=== PATIENT | male | born 1935 | race Caucasian/White ===

== ENCOUNTER 2024-04-27 19:47 | Inpatient (IN) | payer MEDICARE, OTHER ==
[~2024-04-27] VITALS: Ht 177.8 cm; Wt 92.0 kg
[~2024-04-27 19:47] MED LIST: ASPI-1450 PO; ATOR40TA28 PO; GABA-1181 PO; METO25 PO; OXYC5CAP22 PO; TRAZ-257 PO
[2024-04-27] MEDS ORDERED: IPRATROPIUM BROMIDE 0.5 MG/2.5 ML NEB SOLUTION NEB ONE (19:56)
[2024-04-27] MEDS ORDERED: ALBUTEROL SULFATE 2.5 MG/0.5 ML NEB SOLUTION NEB ONE (19:56)
[2024-04-27] MEDS: DEXAMETHASONE SOD PHOS 4 MG/ML 5 ML VIAL IVP ONE (20:00)
[2024-04-27 20:02] VITALS: PULSE 109; RESP 24; O2SAT 100
[2024-04-27] MEDS: IPRATROPIUM BROMIDE 0.5 MG/2.5 ML NEB SOLUTION NEB ONE (20:02)
[2024-04-27] MEDS: ALBUTEROL SULFATE 2.5 MG/0.5 ML NEB SOLUTION NEB ONE (20:02)
[2024-04-27 20:17] VITALS: PULSE 105; RESP 22; O2SAT 99
[2024-04-27] MEDS: GLUCAGON,HUMAN RECOMBINANT 1 MG VIAL IVP ONE (20:21)
[2024-04-27 20:33] LABS: BASOPHILS % (AUTO) 0.8 % (0.0-2.0); EOSINOPHILS % (AUTO) 1.5 % (1.0-6.0); HEMATOCRIT 27.9 % (41-53); HEMOGLOBIN 8.9 g/dL (13.5-17.5); LYMPHOCYTES # (AUTO) 0.5 K/uL (1.0-4.8); LYMPHOCYTES % (AUTO) 4.9 % (22.0-44.0); MEAN CORPUSCULAR HGB CONC 31.7 G/dL (31.0-37.0); MEAN CORPUSCULAR VOLUME 101 fL (80-100); MONOCYTES # (AUTO) 0.6 K/uL (0.1-1.0); MONOCYTES % (AUTO) 6.3 % (2.0-9.0); NEUTROPHILS # (AUTO) 8.6 K/uL (1.8-7.7); PLATELET COUNT (AUTO) 297 K/uL (150-450); RED BLOOD CELL COUNT(AUTO) 2.77 MIL/uL (4.50-5.90); RED CELL DISTRIBUTION WIDTH 17.7 % (11.5-14.5); WHITE BLOOD COUNT (AUTO) 9.9 K/uL (4.5-11.0)
[2024-04-27 20:39] LABS: CALCIUM, TOTAL 7.6 mg/dL (8.8-10.5); CREATININE 1.92 mg/dL (0.60-1.30); NEUTROPHILS % (AUTO) 86.5 % (40.0-70.0); POTASSIUM 4.5 mmol/L (3.5-5.1)
[2024-04-27 20:50] LABS: TROPONIN I-HIGH SENSITIVITY 79 ng/L (<76)
[2024-04-27 20:55] LABS: LACTIC ACID 3.3 mmol/L (0.4-2.0)
[2024-04-27 21:18] LABS: RBC MORPHOLOGY COMMENT ABNORMAL RBC MORPH
[2024-04-27] MEDS: AMPICILLIN SODIUM/SULBACTAM NA 3 GM in SODIUM CHLORIDE 0.9% 100 ML IV ONE (21:23)
[2024-04-27] MEDS: SODIUM CHLORIDE 0.9% 4,200 ML IV ONE (21:23)
[2024-04-27 21:33] LABS: COVID AG,FIA SOURCE NASAL SWAB
[2024-04-27] MEDS: FUROSEMIDE 20 MG/2 ML VIAL IVP ONE (21:50)
[2024-04-27 21:58] LABS: INFLUENZA TYPE A NEGATIVE FOR TYPE A (NEGATIVE); INFLUENZA TYPE B NEGATIVE FOR TYPE B (NEGATIVE); SARS-COV2 (COVID) ANTIGEN,FIA Negative (Negative)
[2024-04-27] MEDS ORDERED: MORPHINE SULFATE 2 MG/ML SYRINGE IVP PRN (22:30)
[2024-04-27] MEDS ORDERED: ONDANSETRON HCL 4 MG/2 ML VIAL IVP PRN (22:30)
[2024-04-27] MEDS ORDERED: MAGNESIUM HYDROXIDE SUSPENSION 30 ML UDCUP PO PRN (22:30)
[2024-04-27] MEDS: HEPARIN SODIUM,PORCINE 5,000 UNITS/ML VIAL SQ SCH (23:55)
[2024-04-28] VITALS (9 sets, daily range): BP systolic 137–158; BP diastolic 60–104; PULSE 81–107; RESP 16–25; TEMP 97.5–99.8; O2SAT 96–100
[2024-04-28 00:09] LABS: APPEARANCE,URINE CLEAR (CLEAR); BILIRUBIN,URINE NEGATIVE (NEGATIVE); COLOR,URINE LIGHT YELLOW (YELLOW); GLUCOSE, URINE (UA) 150-200 mg/dL (NEGATIVE); KETONES,URINE NEGATIVE (NEGATIVE); LEUKOCYTE ESTERASE ,URINE NEGATIVE (NEGATIVE); NITRATE,URINE NEGATIVE (NEGATIVE); OCCULT BLOOD,URINE NEGATIVE (NEGATIVE); PROTEIN,URINE 30-70 mg/dL (NEGATIVE); SPECIFIC GRAVITIY, URINE 1.012 (1.003-1.030); UROBILINOGEN,URINE <=1.0 mg/dL (<=1.0)
[2024-04-28 00:20] LABS: BACTERIA,URINE Rare /HPF (None Seen); RBC,URINE 0-2 /HPF (0-2); WBC,URINE 0-2 /HPF (0-5)
[2024-04-28 00:33] LABS: ABG BASE EXCESS -8.5 mmol/L (-2.0-3.0); ABG CARBOXYHEMOGLOBIN 0.3 % (0.5-1.5); ABG HCO3 17.9 mmol/L (21.0-28.0); ABG METHEMOGLOBIN 0.9 % (0.0-1.5); ABG OXYGEN CONTENT 13.4 mL/dL (15.0-23.0); ABG OXYGEN SATURATION 98.3 % (94.0-98.0); ABG OXYHEMOGLOBIN 97.1 % (94.0-98.0); ABG PCO2 45 mmHg (35.0-48.0); ABG PH 7.241 (7.350-7.450); ABG TOTAL HEMOGLOBIN 9.7 G/dL (13.5-17.5); ALLEN TEST, BLOOD GAS Positive; PO2, ARTERIAL BG 112.4 mmHg (83.0-108.0); SITE, BLOOD GAS RT RADIAL; SOURCE, BLOOD GAS ARTERIAL; TEMPERATURE, FAHRENHEIT, BG 99.1 FAHREN (96.0-98.6)
[2024-04-28 00:34] LABS: ABG A-A DIFF O2 120.8 mmHg (10-20.0); O2 DEVICE,BLOOD GAS CANNULA (ROOM AIR)
[2024-04-28] MEDS ORDERED: APIX2.5T PO (02:12)
[2024-04-28] MEDS: PIPERACILLIN/TAZO 3.375 GM/D5W 50 ML IV SCH (03:22)
[2024-04-28] MEDS ORDERED: SODIUM CHLORIDE 0.9% 100 ML ONE (03:23)
[2024-04-28] MEDS: RACEPINEPHRINE HCL 2.25% 0.5 ML NEB SOLUTION NEB PRN (04:00)
[2024-04-28] MEDS ORDERED: 0.9% SODIUM CHLORIDE 5 ML NEB SOLUTION NEB ONE ×2 (04:02→21:23)
[2024-04-28 04:23] LABS: ABG BASE EXCESS -7.3 mmol/L (-2.0-3.0); ABG CARBOXYHEMOGLOBIN 0.3 % (0.5-1.5); ABG HCO3 18.7 mmol/L (21.0-28.0); ABG METHEMOGLOBIN 0.8 % (0.0-1.5); ABG OXYGEN SATURATION 98.3 % (94.0-98.0); ABG OXYHEMOGLOBIN 97.2 % (94.0-98.0); ABG PCO2 46 mmHg (35.0-48.0); ABG PH 7.254 (7.350-7.450); ABG TOTAL HEMOGLOBIN 10.1 G/dL (13.5-17.5); PO2, ARTERIAL BG 112.5 mmHg (83.0-108.0); SOURCE, BLOOD GAS ARTERIAL; TEMPERATURE, FAHRENHEIT, BG 99.3 FAHREN (96.0-98.6)
[2024-04-28 05:59] LABS: ABG A-A DIFF O2 61.8 mmHg (10-20.0); ALLEN TEST, BLOOD GAS Positive; O2 DEVICE,BLOOD GAS NASAL CANNULA (ROOM AIR); SITE, BLOOD GAS LFT RADIAL
[2024-04-28 06:21] LABS: CALCIUM, TOTAL 7.5 mg/dL (8.8-10.5); CREATININE 1.81 mg/dL (0.60-1.30); POTASSIUM 4.6 mmol/L (3.5-5.1)
[2024-04-28 06:27] LABS: BASOPHILS % (AUTO) 0.3 % (0.0-2.0); EOSINOPHILS % (AUTO) 0 % (1.0-6.0); HEMOGLOBIN 8.8 g/dL (13.5-17.5); LYMPHOCYTES # (AUTO) 0.3 K/uL (1.0-4.8); LYMPHOCYTES % (AUTO) 4.9 % (22.0-44.0); MEAN CORPUSCULAR HEMOGLOBIN 32.6 pg (26.0-34.0); MEAN CORPUSCULAR HGB CONC 32.6 G/dL (31.0-37.0); MEAN CORPUSCULAR VOLUME 100 fL (80-100); MONOCYTES # (AUTO) 0.1 K/uL (0.1-1.0); MONOCYTES % (AUTO) 0.9 % (2.0-9.0); NEUTROPHILS # (AUTO) 5.9 K/uL (1.8-7.7); PLATELET COUNT (AUTO) 295 K/uL (150-450); RED CELL DISTRIBUTION WIDTH 17.5 % (11.5-14.5); WHITE BLOOD COUNT (AUTO) 6.3 K/uL (4.5-11.0)
[2024-04-28 06:29] LABS: NEUTROPHILS % (AUTO) 93.9 % (40.0-70.0)
[2024-04-28 06:40] LABS: TROPONIN I-HIGH SENSITIVITY 86 ng/L (<76)
[2024-04-28] MEDS: PANTOPRAZOLE SODIUM 40 MG DR TABLET PO SCH (08:51)
[2024-04-28] MEDS: APIXABAN 2.5 MG TABLET PO SCH (08:51)
[2024-04-28] MEDS: DOCUSATE SODIUM 100 MG CAPSULE PO SCH (08:51)
[2024-04-28] MEDS: METOPROLOL TARTRATE 25 MG TABLET PO SCH (08:51)
[2024-04-28] MEDS: ASPIRIN 81 MG CHEWABLE TABLET PO SCH (08:51)
[2024-04-28] MEDS ORDERED: EPINEPHrine 1:10,000 [1 MG/10 ML] SYRINGE IVP ONE (12:00)
[2024-04-28] MEDS ORDERED: DEXTROSE 5%-WATER 250 ML BAG IV ONE (12:00)
[2024-04-28] MEDS ORDERED: HydrALAZINE HCL 20 MG/ML VIAL IVP PRN (17:00)
[2024-04-28] MEDS: ATORVASTATIN CALCIUM 40 MG TABLET PO SCH (20:42)
[2024-04-28] MEDS: ALBUTEROL SULFATE 2.5 MG/0.5 ML NEB SOLUTION NEB PRN (21:24)
[2024-04-29] VITALS (15 sets, daily range): BP systolic 101–166; BP diastolic 51–96; PULSE 52–109; RESP 13–24; TEMP 97.7–98.4; O2SAT 95–100
[2024-04-29] MEDS: ACETAMINOPHEN 325 MG TABLET PO PRN (02:19)
[2024-04-29] MEDS ORDERED: 0.9% SODIUM CHLORIDE 5 ML NEB SOLUTION NEB ONE ×2 (02:33→12:05)
[2024-04-29 06:10] LABS: CALCIUM, TOTAL 7.7 mg/dL (8.8-10.5); CREATININE 2.06 mg/dL (0.60-1.30)
[2024-04-29] MEDS: HYDROCODONE/ACETAMINOPHEN 5-325 MG TABLET PO PRN (06:17)
[2024-04-29 06:22] LABS: BASOPHILS % (AUTO) 0.2 % (0.0-2.0); EOSINOPHILS % (AUTO) 0 % (1.0-6.0); HEMATOCRIT 28.3 % (41-53); HEMOGLOBIN 8.9 g/dL (13.5-17.5); LYMPHOCYTES # (AUTO) 0.7 K/uL (1.0-4.8); LYMPHOCYTES % (AUTO) 4.3 % (22.0-44.0); MEAN CORPUSCULAR HEMOGLOBIN 31.5 pg (26.0-34.0); MEAN CORPUSCULAR HGB CONC 31.6 G/dL (31.0-37.0); MEAN CORPUSCULAR VOLUME 100 fL (80-100); MONOCYTES # (AUTO) 1.1 K/uL (0.1-1.0); MONOCYTES % (AUTO) 7.5 % (2.0-9.0); NEUTROPHILS # (AUTO) 13.5 K/uL (1.8-7.7); PLATELET COUNT (AUTO) 319 K/uL (150-450); RED BLOOD CELL COUNT(AUTO) 2.84 MIL/uL (4.50-5.90); RED CELL DISTRIBUTION WIDTH 17.7 % (11.5-14.5); WHITE BLOOD COUNT (AUTO) 15.3 K/uL (4.5-11.0)
[2024-04-29 06:37] LABS: TROPONIN I-HIGH SENSITIVITY 215 ng/L (<76)
[2024-04-29] MEDS: ZOLPIDEM TARTRATE 5 MG TABLET PO PRN (22:34)
[2024-04-30] VITALS (9 sets, daily range): BP systolic 104–158; BP diastolic 62–93; PULSE 56–105; RESP 18–20; TEMP 97.6–99; O2SAT 95–100
[2024-04-30 06:13] LABS: HEMATOCRIT 23.9 % (41-53); HEMOGLOBIN 7.6 g/dL (13.5-17.5); MEAN CORPUSCULAR HEMOGLOBIN 31.5 pg (26.0-34.0); MEAN CORPUSCULAR HGB CONC 31.7 G/dL (31.0-37.0); MEAN CORPUSCULAR VOLUME 99 fL (80-100); PLATELET COUNT (AUTO) 282 K/uL (150-450); RED BLOOD CELL COUNT(AUTO) 2.41 MIL/uL (4.50-5.90); RED CELL DISTRIBUTION WIDTH 17.8 % (11.5-14.5); WHITE BLOOD COUNT (AUTO) 11.5 K/uL (4.5-11.0)
[2024-04-30 06:18] LABS: CALCIUM, TOTAL 7.7 mg/dL (8.8-10.5); CREATININE 2.55 mg/dL (0.60-1.30); POTASSIUM 4.8 mmol/L (3.5-5.1)
[2024-04-30 07:53] LABS: BAND NEUTROPHILS % (MANUAL) 3 % (0-5); LYMPHOCYTES % (MANUAL) 16 % (22-44); MONOCYTES % (MANUAL) 6 % (2-9); SEGMENTED NEUTROPHILS % 75 % (40-70); TOTAL CELLS COUNTED 100
[2024-04-30 07:54] LABS: RBC MORPHOLOGY COMMENT NORMAL RBC MORPH
[2024-04-30] MEDS: SODIUM CHLORIDE 0.9% 1,000 ML IV ONE (12:01)
[2024-04-30] MEDS: PIPERACILLIN SODIUM/TAZOBACTAM 2.25 GM in DEXTROSE 5%-WATER 50 ML IV SCH (21:25)
[2024-05-01 05:51] VITALS: BP 117/52; PULSE 104; RESP 19; TEMP 97.6; O2SAT 100
[2024-05-01 06:32] LABS: HEMATOCRIT 41.2 % (41-53); HEMOGLOBIN 13.8 g/dL (13.5-17.5); MEAN CORPUSCULAR HEMOGLOBIN 30.9 pg (26.0-34.0); MEAN CORPUSCULAR HGB CONC 33.4 G/dL (31.0-37.0); MEAN CORPUSCULAR VOLUME 93 fL (80-100); PLATELET COUNT (AUTO) 136 K/uL (150-450); RED BLOOD CELL COUNT(AUTO) 4.45 MIL/uL (4.50-5.90); RED CELL DISTRIBUTION WIDTH 14.1 % (11.5-14.5); WHITE BLOOD COUNT (AUTO) 3.5 K/uL (4.5-11.0)
[2024-05-01 06:48] LABS: CALCIUM, TOTAL 8.3 mg/dL (8.8-10.5); CREATININE 1.17 mg/dL (0.60-1.30); POTASSIUM 4.1 mmol/L (3.5-5.1)
[2024-05-01 07:25] LABS: BAND NEUTROPHILS % (MANUAL) 1 % (0-5); EOSINOPHILS % (MANUAL) 1 % (1-6); LYMPHOCYTES % (MANUAL) 33 % (22-44); MONOCYTES % (MANUAL) 17 % (2-9); PLATELET MORPHOLOGY COMMENT LARGE PLTS PRESENT; SEGMENTED NEUTROPHILS % 48 % (40-70); TOTAL CELLS COUNTED 100
[2024-05-01 07:26] LABS: RBC MORPHOLOGY COMMENT NORMAL RBC MORPH
[2024-05-01 08:00] VITALS: PULSE 90
[2024-05-01 08:16] VITALS: BP 117/81; PULSE 104; RESP 22; TEMP 97.6; O2SAT 96
[2024-05-01 09:07] LABS: EOSINOPHILS % (AUTO) 1.5 % (1.0-6.0); HEMOGLOBIN 8.1 g/dL (13.5-17.5); LYMPHOCYTES # (AUTO) 0.8 K/uL (1.0-4.8); LYMPHOCYTES % (AUTO) 8.5 % (22.0-44.0); MEAN CORPUSCULAR HEMOGLOBIN 31.3 pg (26.0-34.0); MEAN CORPUSCULAR HGB CONC 31.2 G/dL (31.0-37.0); MEAN CORPUSCULAR VOLUME 100 fL (80-100); MONOCYTES # (AUTO) 1.1 K/uL (0.1-1.0); MONOCYTES % (AUTO) 11.4 % (2.0-9.0); NEUTROPHILS # (AUTO) 7.3 K/uL (1.8-7.7); NEUTROPHILS % (AUTO) 77.6 % (40.0-70.0); PLATELET COUNT (AUTO) 252 K/uL (150-450); RED CELL DISTRIBUTION WIDTH 18.1 % (11.5-14.5); WHITE BLOOD COUNT (AUTO) 9.4 K/uL (4.5-11.0)
[2024-05-01 09:12] LABS: CALCIUM, TOTAL 7.8 mg/dL (8.8-10.5); CREATININE 2.24 mg/dL (0.60-1.30); POTASSIUM 4.5 mmol/L (3.5-5.1)
[2024-05-01 09:29] LABS: RBC MORPHOLOGY COMMENT ABNORMAL RBC MORPH
[2024-05-01 12:00] VITALS: BP 130/85; PULSE 89; PULSE 90; RESP 18; TEMP 97.8; O2SAT 100
[2024-05-01 16:00] VITALS: BP 157/96; PULSE 104; PULSE 94; RESP 20; TEMP 98; O2SAT 100
[2024-05-01] MEDS: SODIUM CHLORIDE 0.9% 500 ML IV ONE (17:12)
[2024-05-01 20:30] VITALS: BP 167/76; PULSE 91; RESP 18; TEMP 98; O2SAT 100
[2024-05-02] VITALS (11 sets, daily range): BP systolic 101–177; BP diastolic 54–79; PULSE 59–107; RESP 18–25; TEMP 97.7–98.7; O2SAT 96–98
[2024-05-02 06:00] LABS: APPEARANCE,URINE TURBID (CLEAR); BILIRUBIN,URINE NEGATIVE (NEGATIVE); COLOR,URINE YELLOW (YELLOW); GLUCOSE, URINE (UA) NEGATIVE (NEGATIVE); KETONES,URINE NEGATIVE (NEGATIVE); LEUKOCYTE ESTERASE ,URINE LARGE (NEGATIVE); NITRATE,URINE NEGATIVE (NEGATIVE); OCCULT BLOOD,URINE SMALL (NEGATIVE); PH,URINE 5.5 (5.0-8.0); PROTEIN,URINE 30-70 mg/dL (NEGATIVE); SPECIFIC GRAVITIY, URINE 1.031 (1.003-1.030); UROBILINOGEN,URINE <=1.0 mg/dL (<=1.0)
[2024-05-02 06:12] LABS: CREATININE,URINE RANDOM 174.8 mg/dL (30.0-125.0); PROTEIN,URINE RANDOM 104 mg/dL (0-11.9); SODIUM,URINE RANDOM 16 mmol/l (20-110)
[2024-05-02 06:14] LABS: AMORPHOUS SEDIMENT,UR Few /LPF (None Seen); BACTERIA,URINE Moderate /HPF (None Seen); SQUAMOUS EPITHELIAL CELL,UR Few /LPF (None Seen)
[2024-05-02 14:07] LABS: CALCIUM, TOTAL 7.9 mg/dL (8.8-10.5); CREATININE 2.97 mg/dL (0.60-1.30); POTASSIUM 5.1 mmol/L (3.5-5.1)
[2024-05-02 18:39] LABS: ABG BASE EXCESS -8.4 mmol/L (-2.0-3.0); ABG CARBOXYHEMOGLOBIN 0.5 % (0.5-1.5); ABG HCO3 17.7 mmol/L (21.0-28.0); ABG METHEMOGLOBIN 0.3 % (0.0-1.5); ABG OXYGEN CONTENT 11.1 mL/dL (15.0-23.0); ABG OXYGEN SATURATION 85.8 % (94.0-98.0); ABG OXYHEMOGLOBIN 85.1 % (94.0-98.0); ABG PCO2 47 mmHg (35.0-48.0); ABG PH 7.227 (7.350-7.450); ABG TOTAL HEMOGLOBIN 9.2 G/dL (13.5-17.5); PO2, ARTERIAL BG 61.8 mmHg (83.0-108.0); SITE, BLOOD GAS RT RADIAL; SOURCE, BLOOD GAS ARTERIAL; TEMPERATURE, FAHRENHEIT, BG 98.6 FAHREN (96.0-98.6)
[2024-05-02 18:40] LABS: ALLEN TEST, BLOOD GAS Positive; O2 DEVICE,BLOOD GAS CANNULA (ROOM AIR)
[2024-05-02 19:17] LABS: LACTIC ACID 4.8 mmol/L (0.4-2.0)
[2024-05-02] MEDS: *CLINICAL-MEROPENEM DOSING CLINICAL ONE (20:33)
[2024-05-02] MEDS: LEVALBUTEROL 0.63 MG/3 ML NEB SOLUTION NEB ONE (22:06)
[2024-05-02] MEDS: MEROPENEM 500 MG in SODIUM CHLORIDE 0.9% 50 ML IV SCH (23:43)
[2024-05-03] VITALS (12 sets, daily range): BP systolic 105–139; BP diastolic 55–71; PULSE 75–107; RESP 16–24; TEMP 98–98.4; O2SAT 93–100
[2024-05-03 00:36] LABS: ABG BASE EXCESS -7.7 mmol/L (-2.0-3.0); ABG CARBOXYHEMOGLOBIN 0.5 % (0.5-1.5); ABG HCO3 18.8 mmol/L (21.0-28.0); ABG METHEMOGLOBIN 1.4 % (0.0-1.5); ABG OXYGEN CONTENT 11.5 mL/dL (15.0-23.0); ABG OXYGEN SATURATION 99.1 % (94.0-98.0); ABG OXYHEMOGLOBIN 97.2 % (94.0-98.0); ABG PCO2 30 mmHg (35.0-48.0); ABG PH 7.386 (7.350-7.450); ABG TOTAL HEMOGLOBIN 8.2 G/dL (13.5-17.5); SOURCE, BLOOD GAS ARTERIAL; TEMPERATURE, FAHRENHEIT, BG 98.6 FAHREN (96.0-98.6)
[2024-05-03 00:37] LABS: ALLEN TEST, BLOOD GAS Positive; PO2, ARTERIAL BG 127.4 mmHg (83.0-108.0); SITE, BLOOD GAS RT RADIAL
[2024-05-03 00:38] LABS: O2 DEVICE,BLOOD GAS BIPAP (ROOM AIR)
[2024-05-03] MEDS: RINGERS SOLUTION,LACTATED 500 ML IV ONE (01:00)
[2024-05-03] MEDS ORDERED: SODIUM CHLORIDE 0.9% 500 ML IV ONE (01:26)
[2024-05-03] MEDS: SODIUM CHLORIDE 0.9% 500 ML IV ONE (01:33)
[2024-05-03 03:51] LABS: GLUCOMETER DEV NAME(LOC) 5S.1C; GLUCOSE,POINT OF CARE 133 MG/DL (70-110)
[2024-05-03 08:49] LABS: CALCIUM, TOTAL 7.7 mg/dL (8.8-10.5); CREATININE 3.45 mg/dL (0.60-1.30); POTASSIUM 4.6 mmol/L (3.5-5.1)
[2024-05-03 12:06] LABS: ABG METHEMOGLOBIN 0.3 % (0.0-1.5); SOURCE, BLOOD GAS ARTERIAL
[2024-05-03 14:48] LABS: ABG BASE EXCESS -8.6 mmol/L (-2.0-3.0); ABG CARBOXYHEMOGLOBIN 0.2 % (0.5-1.5); ABG HCO3 18.1 mmol/L (21.0-28.0); ABG OXYGEN CONTENT 10.2 mL/dL (15.0-23.0); ABG OXYGEN SATURATION 88.7 % (94.0-98.0); ABG OXYHEMOGLOBIN 88.3 % (94.0-98.0); ABG PCO2 28 mmHg (35.0-48.0); ABG TOTAL HEMOGLOBIN 8.2 G/dL (13.5-17.5); PO2, ARTERIAL BG 56.4 mmHg (83.0-108.0)
[2024-05-03 14:49] LABS: ALLEN TEST, BLOOD GAS POS; O2 DEVICE,BLOOD GAS BIPAP (ROOM AIR); SITE, BLOOD GAS RT RADIAL; SPONTANEOUS VT, BG 290 ml
[2024-05-03] MEDS: DEXTROSE 5%-WATER 1,000 ML IV SCH (15:33)
[2024-05-03] MEDS: BISACODYL 10 MG RECTAL RECTAL SUPPOSITORY PR PRN (16:28)
[2024-05-03] MEDS: FUROSEMIDE 20 MG/2 ML VIAL IVP SCH (20:09)
[2024-05-04] VITALS (8 sets, daily range): BP systolic 120–162; BP diastolic 52–74; PULSE 88–116; RESP 18–20; TEMP 97.6–98.8; O2SAT 95–100
[2024-05-04 07:22] LABS: CALCIUM, TOTAL 7.7 mg/dL (8.8-10.5); CREATININE 3.45 mg/dL (0.60-1.30); PHOSPHORUS 5.4 mg/dL (2.5-4.9); POTASSIUM 4.6 mmol/L (3.5-5.1)
[2024-05-04 07:43] LABS: BASOPHILS % (AUTO) 0.3 % (0.0-2.0); EOSINOPHILS % (AUTO) 0.6 % (1.0-6.0); HEMATOCRIT 27.5 % (41-53); HEMOGLOBIN 8.4 g/dL (13.5-17.5); LYMPHOCYTES # (AUTO) 0.5 K/uL (1.0-4.8); LYMPHOCYTES % (AUTO) 4.1 % (22.0-44.0); MEAN CORPUSCULAR HGB CONC 30.5 G/dL (31.0-37.0); MEAN CORPUSCULAR VOLUME 102 fL (80-100); MONOCYTES # (AUTO) 1.2 K/uL (0.1-1.0); MONOCYTES % (AUTO) 9.3 % (2.0-9.0); PLATELET COUNT (AUTO) 219 K/uL (150-450); WHITE BLOOD COUNT (AUTO) 12.8 K/uL (4.5-11.0)
[2024-05-04 07:47] LABS: NEUTROPHILS % (AUTO) 85.7 % (40.0-70.0)
[2024-05-04] MEDS: FLUCONAZOLE 100 MG TABLET PO SCH (10:36)
[2024-05-05 00:30] VITALS: BP 145/62
[2024-05-05 05:58] VITALS: BP 99/58; PULSE 108; RESP 19; TEMP 98; O2SAT 99
[2024-05-05 07:13] LABS: CALCIUM, TOTAL 7.7 mg/dL (8.8-10.5); CREATININE 3.54 mg/dL (0.60-1.30); PHOSPHORUS 5.1 mg/dL (2.5-4.9); POTASSIUM 4.6 mmol/L (3.5-5.1)
[2024-05-05 08:06] VITALS: BP 125/58; PULSE 109; RESP 20; TEMP 99; O2SAT 97
[2024-05-05 11:32] LABS: TROPONIN I-HIGH SENSITIVITY 5701 ng/L (<76)
[2024-05-05 11:55] VITALS: BP 127/52; PULSE 94; RESP 18; TEMP 97.4; O2SAT 97
[2024-05-05] MEDS ORDERED: HEPARIN SODIUM,PORCINE 5,000 UNITS/ML VIAL IVP PRN ×2 (12:00)
[2024-05-05 12:20] LABS: BASOPHILS % (AUTO) 0.5 % (0.0-2.0); HEMOGLOBIN 8.2 g/dL (13.5-17.5); MONOCYTES # (AUTO) 1.2 K/uL (0.1-1.0)
[2024-05-05 12:23] LABS: EOSINOPHILS % (AUTO) 0.9 % (1.0-6.0); HEMATOCRIT 28.5 % (41-53); LYMPHOCYTES # (AUTO) 0.6 K/uL (1.0-4.8); LYMPHOCYTES % (AUTO) 5.7 % (22.0-44.0); MEAN CORPUSCULAR HGB CONC 28.7 G/dL (31.0-37.0); MEAN CORPUSCULAR VOLUME 104 fL (80-100); NEUTROPHILS # (AUTO) 9.2 K/uL (1.8-7.7); NEUTROPHILS % (AUTO) 81.9 % (40.0-70.0); PLATELET COUNT (AUTO) 203 K/uL (150-450); RED BLOOD CELL COUNT(AUTO) 2.73 MIL/uL (4.50-5.90); RED CELL DISTRIBUTION WIDTH 21.1 % (11.5-14.5); WHITE BLOOD COUNT (AUTO) 11.3 K/uL (4.5-11.0)
[2024-05-05 12:41] LABS: RBC MORPHOLOGY COMMENT ABNORMAL RBC MORPH
[2024-05-05 12:45] LABS: INR 1.7 (0.9-1.1); PROTHROMBIN TIME 17.6 SEC (9.4-11.6)
[2024-05-05] MEDS: HEPARIN SODIUM 25000 UNITS/D5W 250 ML IV PRN (13:26)
[2024-05-05] MEDS: HEPARIN SODIUM,PORCINE 5,000 UNITS/ML VIAL IVP ONE (13:28)
[2024-05-05 14:46] LABS: GLUCOMETER DEV NAME(LOC) 5N.2C; GLUCOSE,POINT OF CARE 158 MG/DL (70-110)
[2024-05-05 15:17] LABS: ABG BASE EXCESS -13.4 mmol/L (-2.0-3.0); ABG CARBOXYHEMOGLOBIN 0.4 % (0.5-1.5); ABG HCO3 14.1 mmol/L (21.0-28.0); ABG METHEMOGLOBIN 1.2 % (0.0-1.5); ABG OXYGEN CONTENT 11.9 mL/dL (15.0-23.0); ABG OXYHEMOGLOBIN 93.5 % (94.0-98.0); ABG PCO2 65 mmHg (35.0-48.0); ABG PH 7.041 (7.350-7.450); ABG TOTAL HEMOGLOBIN 8.9 G/dL (13.5-17.5); SITE, BLOOD GAS RT FEMORAL; SOURCE, BLOOD GAS ARTERIAL; TEMPERATURE, FAHRENHEIT, BG 98.6 FAHREN (96.0-98.6)
[2024-05-05 15:18] LABS: O2 DEVICE,BLOOD GAS BAG VALVE MASK (ROOM AIR)
[2024-05-05] MEDS ORDERED: EPINEPHrine 5 MG in DEXTROSE 5%-WATER 245 ML IV PRN (15:45)
[2024-05-05] MEDS ORDERED: PHENYLEPHRINE 200 MG/D5%-WATER 250 ML IV PRN (15:45)
[2024-05-05] MEDS ORDERED: NOREPINEPHRINE 8 MG/0.9 % NACL 250 ML IV PRN (15:45)
[2024-05-05 15:46] LABS: BASOPHILS % (AUTO) 1.3 % (0.0-2.0); EOSINOPHILS % (AUTO) 1.2 % (1.0-6.0); HEMATOCRIT 29.3 % (41-53); HEMOGLOBIN 8.3 g/dL (13.5-17.5); LYMPHOCYTES % (AUTO) 15.6 % (22.0-44.0); MEAN CORPUSCULAR HEMOGLOBIN 30.1 pg (26.0-34.0); MEAN CORPUSCULAR HGB CONC 28.3 G/dL (31.0-37.0); MEAN CORPUSCULAR VOLUME 106 fL (80-100); MONOCYTES # (AUTO) 0.9 K/uL (0.1-1.0); MONOCYTES % (AUTO) 7.1 % (2.0-9.0); NEUTROPHILS # (AUTO) 9.5 K/uL (1.8-7.7); NEUTROPHILS % (AUTO) 74.8 % (40.0-70.0); PLATELET COUNT (AUTO) 186 K/uL (150-450); RED BLOOD CELL COUNT(AUTO) 2.75 MIL/uL (4.50-5.90); WHITE BLOOD COUNT (AUTO) 12.6 K/uL (4.5-11.0)
[2024-05-05 15:59] LABS: CALCIUM, TOTAL 7.2 mg/dL (8.8-10.5); CREATININE 4.11 mg/dL (0.60-1.30); POTASSIUM 5.2 mmol/L (3.5-5.1)
[2024-05-05 16:08] LABS: PROTHROMBIN TIME 20.3 SEC (9.4-11.6)
[2024-05-05 16:10] LABS: TROPONIN I-HIGH SENSITIVITY 5999 ng/L (<76)
[2024-05-05 16:23] LABS: ALBUMIN 2.1 g/dL (3.4-5.0); BILIRUBIN,TOTAL 1.5 mg/dL (0.1-1.0); TOTAL PROTEIN, SERUM 5.5 g/dL (6.4-8.2)
[2024-05-05] MEDS ORDERED: METOPROLOL TARTRATE 25 MG TABLET PO SCH (17:00)
[2024-05-06] MEDS ORDERED: ASPIRIN 81 MG DR TABLET PO SCH (09:00)
== END 2024-05-05 16:25 | DRG 871 ==
LOC: EMS 19:47 → EDH 04-28 01:16 → ICU 04-28 02:45 → 5S 04-29 10:30
PROVIDERS: ADMIT Internal Medicine; ATTEND Internal Medicine
PROC: 5A12012 Performance of Cardiac Output, Single, Manual (ICD-10-PCS; principal; 2024-04-28)
PROC: 5A09357 Assistance with Respiratory Ventilation, Less than 24 Consecutive Hours, Continuous Positive Airway Pressure (ICD-10-PCS; 2024-05-03)
DX: A41.9 Sepsis, unspecified organism (principal); G93.41 Metabolic encephalopathy; J15.69 Pneumonia due to other Gram-negative bacteria; J96.21 Acute and chronic respiratory failure with hypoxia; I50.33 Acute on chronic diastolic (congestive) heart failure; N17.0 Acute kidney failure with tubular necrosis; J69.0 Pneumonitis due to inhalation of food and vomit; J98.11 Atelectasis; I48.19 Other persistent atrial fibrillation; J44.1 Chronic obstructive pulmonary disease with (acute) exacerbation; I13.0 Hypertensive heart and chronic kidney disease with heart failure and stage 1 through stage 4 chronic kidney disease, or unspecified chronic kidney disease; E87.0 Hyperosmolality and hypernatremia; F02.C11 Dementia in other diseases classified elsewhere, severe, with agitation; N18.4 Chronic kidney disease, stage 4 (severe); F02.83 Dementia in other diseases classified elsewhere, unspecified severity, with mood disturbance; J44.0 Chronic obstructive pulmonary disease with (acute) lower respiratory infection; E87.20 Acidosis, unspecified; I25.10 Atherosclerotic heart disease of native coronary artery without angina pectoris; R79.89 Other specified abnormal findings of blood chemistry; E78.5 Hyperlipidemia, unspecified; E78.00 Pure hypercholesterolemia, unspecified; G30.9 Alzheimer's disease, unspecified; I46.9 Cardiac arrest, cause unspecified; I49.3 Ventricular premature depolarization; N40.0 Benign prostatic hyperplasia without lower urinary tract symptoms; R13.10 Dysphagia, unspecified; F02.80 Dementia in other diseases classified elsewhere, unspecified severity, without behavioral disturbance, psychotic disturbance, mood disturbance, and anxiety; R62.7 Adult failure to thrive; Z96.653 Presence of artificial knee joint, bilateral; I70.0 Atherosclerosis of aorta; E66.9 Obesity, unspecified; K21.9 Gastro-esophageal reflux disease without esophagitis; D50.9 Iron deficiency anemia, unspecified; D63.8 Anemia in other chronic diseases classified elsewhere; E87.8 Other disorders of electrolyte and fluid balance, not elsewhere classified; Z95.1 Presence of aortocoronary bypass graft; I34.0 Nonrheumatic mitral (valve) insufficiency; Z66 Do not resuscitate; Z78.1 Physical restraint status; Z68.29 Body mass index [BMI] 29.0-29.9, adult
CPT/HCPCS: 36600; 70450; 71045; 71250; 74018; 74176; 76770; 80048; 80053; 81001; 82550; 82570; 82728; 82805; 82962; 83540; 83550; 83605; 83735; 83880; 84100; 84156; 84300; 84484; 84540; 85025; 85379; 85610; 85730; 87040; 87081; 87086; 87186; 87481; 87635; 87804; 92610; 92950; 93005; 93306; 94002; 94640; 94660; 97163; 99285; J0171; J0295; J0360; J1100; J1250; J1610; J1644; J1940; J2185; J2370; J2543; J7030; J7040; J7050; J7060; J7120; 36415-L1; 36415-TC; J7613; Z7610